=== PATIENT | male | born 1955 | race Two or more races ===

== ENCOUNTER 2019-05-25 10:48 | Outpatient (CLI) | payer OTHER ==
[~2019-05-25] VITALS: Ht 172.7 cm; Wt 81.6 kg
[2019-05-25] MEDS ORDERED: MEDROL4 MG PO ×2 (11:42)
== END 2019-05-25 15:13 | disposition home or self-care (01) ==
LOC: OFIC 805 10:48
DX: J31.0 Chronic rhinitis (principal); H91.22 Sudden idiopathic hearing loss, left ear; R22.1 Localized swelling, mass and lump, neck; C09.9 Malignant neoplasm of tonsil, unspecified; C77.0 Secondary and unspecified malignant neoplasm of lymph nodes of head, face and neck

== ENCOUNTER 2019-05-25 12:49 | Outpatient (CLI) | payer OTHER ==
[~2019-05-25 12:49] MED LIST: MEDROL4 MG PO
== END 2019-05-25 12:55 | disposition home or self-care (01) ==
LOC: LAB 12:49
DX: N20.0 Calculus of kidney (principal)

== ENCOUNTER 2019-05-26 12:36 | Outpatient (CLI) | payer OTHER | END 2019-05-26 17:00 | disposition home or self-care (01) | LOC: MRI 12:36 | DX: H91.8X2 Other specified hearing loss, left ear (principal) | CPT/HCPCS: 70552 ==

== ENCOUNTER 2019-06-25 09:20 | Outpatient (CLI) | payer OTHER | END 2019-06-25 09:50 | disposition home or self-care (01) | LOC: NUCLEAR 09:20 | DX: R22.1 Localized swelling, mass and lump, neck (principal); C09.9 Malignant neoplasm of tonsil, unspecified | CPT/HCPCS: 78815; A9552 ==

== ENCOUNTER 2021-06-20 07:21 | Outpatient (CLI) | payer OTHER | END 2021-06-20 07:27 | disposition home or self-care (01) | LOC: NUCLEAR 07:21 | DX: C10.8 Malignant neoplasm of overlapping sites of oropharynx (principal) | CPT/HCPCS: 78816; A9552 ==